=== PATIENT | male | born 1995 | race Caucasian/White ===

== ENCOUNTER 2018-10-19 04:35 | Emergency (ER) | payer OTHER ==
[2018-10-19] MEDS: DEXAMETHASONE 10 MG/ML 1 ML INJ IM (06:26)
[2018-10-19] MEDS: IPRATROPIUM (NEB) 0.5 MG/2.5 ML AMP HHN (06:27)
[2018-10-19] MEDS: ALBUTEROL 0.083% (NEB) 2.5 MG/3 ML AMP HHN (06:27)
== END 2018-10-19 07:26 | disposition home or self-care (01) ==
LOC: FTE 07:26
DX: J45.901 Unspecified asthma with (acute) exacerbation (principal)
CPT/HCPCS: 94664; 96372; 99284-25